=== PATIENT | female | born 1995 | race Caucasian/White ===

== ENCOUNTER 2023-07-13 14:09 | Emergency (ER) | payer SELFPAY ==
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
[2023-07-13] MEDS: iohexol 350 mg/mL 500 mL Btl (per mL) IV (14:41)
[2023-07-13 14:46] VITALS: BMI 27.4
[2023-07-13 14:49] VITALS: BP 126/95; PULSE 106; RESP 16; TEMP 37.1; O2SAT 99
== END 2023-07-13 15:37 | disposition home or self-care (01) ==
PROVIDERS: Emergency Provider Emergency Medicine; PCP Family Medicine
DX: M54.2 Cervicalgia (principal); V89.2XXA Person injured in unspecified motor-vehicle accident, traffic, initial encounter; S60.812A Abrasion of left wrist, initial encounter; S60.811A Abrasion of right wrist, initial encounter
CPT/HCPCS: 70491; 73000; 99284; Q9967